=== PATIENT | male | born 1945 | race Caucasian/White ===

== ENCOUNTER 2017-06-11 10:38 | Observation (INO) | payer OTHER ==
[2017-05-30 10:01] VITALS: Ht 175.3 cm; Wt 98.6 kg
--- NOTE | 2017-05-30 10:33 | PAT Medication Instructions ---
Service Date May 30, 2017. Current Home Medication List Glipizide (Glipizide), 10 MG PO QAM Naproxen (Aleve), 40 MG PO PRN Prednisone Tab (Prednisone), 10 MG PO QAM Tamsulosin Hcl (Flomax), 0.4 MG PO BID [Apruvia], 1 TAB PO QAM Medication Instructions For Your Scheduled Surgery - Check with surgeon for instructions: Naproxen (Aleve), 40 MG PO PRN - Hold the following medications the morning of surgery: Glipizide (Glipizide), 10 MG PO QAM Tamsulosin Hcl (Flomax), 0.4 MG PO BID [Apruvia], 1 TAB PO QAM - Take the following medications the morning of surgery with a sip of water: Prednisone Tab (Prednisone), 10 MG PO QAM - Take the following medications as scheduled the night before surgery: Tamsulosin Hcl (Flomax), 0.4 MG PO BID If you have any questions please call us at [phone] or [phone] or [phone]
--- NOTE | 2017-05-30 10:58 | DIAGNOSTIC IMAGING REPORT ---
CHEST 2 VIEWS ROUTINE CLINICAL HISTORY: PAT preoperative evaluation COMPARISON STUDY: No previous studies for comparison. FINDINGS: The bones soft tissues and hemidiaphragms are normal. The cardiomediastinal silhouette is normal. The lungs are clear. The pulmonary vasculature is normal. IMPRESSION: Negative chest. The above report was generated using voice recognition software. It may contain grammatical, syntax or spelling errors. Electronically signed by: Micheal Maria M.D. 05/30/2017 10:56 AM Dictated Date/Time: 05/30/2017 10:56 AM
[2017-05-30 11:17] LABS: BASO % 0.3 %; BASO ABS # 0.04 K/uL (0-0.2); EOS % 1.6 %; IG# 0.13 K/uL (0.00-0.02); LYMPH % 18.5 %; LYMPH ABS # 2.31 K/uL (1.2-3.4); MEAN CELL VOLUME 92.4 fL (80-100); MEAN CORPUSCULAR HEMOGLOBIN 33.2 pg (25-34); MEAN CORPUSCULAR HGB CONC 35.9 g/dl (32-36); MEAN PLATELET VOLUME 11.1 fL (7.4-10.4); MONO % 8.8 %; NEUT % 69.8 %; NEUT ABS # 8.72 K/uL (1.4-6.5); PLATELET COUNT 184 K/uL (130-400); RED CELL DISTRIBUTION WIDTH CV 13.3 % (11.5-14.5); RED CELL DISTRIBUTION WIDTH SD 44.2 fL (36.4-46.3)
[2017-05-30 11:36] LABS: CALCIUM 8.6 mg/dl (8.5-10.1); CREATININE 0.98 mg/dl (0.60-1.40); POTASSIUM 3.4 mmol/L (3.5-5.1)
[2017-06-11] VITALS (9 sets, daily range): BP systolic 123–144; BP diastolic 73–82; PULSE 72–99; TEMP 36.3–38; O2SAT 96–98
[~2017-06-11] VITALS: Ht 175.3 cm; Wt 98.6 kg
[~2017-06-11 10:38] MED LIST: CIPROFLOXACIN / D5W 400 MG IV SCH; GLIP10TA10 PO; JANUVIA PO; LACTATED RINGER'S 1000ML 1,000 ML IV SCH; NAPR1TAB9 PO; PRED10TA PO; TAMS0.4C38 PO
[2017-06-11] MEDS ORDERED: METF-384 PO (11:05)
[2017-06-11] MEDS ORDERED: ASPI1TAB2 PO (11:07)
[2017-06-11] MEDS ORDERED: PROPOFOL IV EMULSION 10 MG/ML 20 ML VIAL IV ONE (11:59)
[2017-06-11] MEDS ORDERED: FENTANYL CITRATE INJ 50 MCG/1 ML 2 ML VIAL ONE (11:59)
[2017-06-11] MEDS ORDERED: MIDAZOLAM HCL 1 MG/ML 2ML VIAL ONE (11:59)
[2017-06-11] MEDS ORDERED: LIDOCAINE HCL 2% 2 ML VIAL (20MG/ML) ONE (11:59)
[2017-06-11] MEDS ORDERED: EpHEDrine SULFATE 50MG/5ML SYR ONE (12:02)
[2017-06-11] MEDS ORDERED: NALOXONE HCL 0.4 MG/1 ML VIAL/CARP IV PRN (12:30)
[2017-06-11] MEDS ORDERED: MEPERIDINE HCL 25 MG/ML CARP IV PRN (12:30)
[2017-06-11] MEDS ORDERED: PHENYLEPHRINE 100MCG/ML 5ML SYR IV PRN (12:30)
[2017-06-11] MEDS ORDERED: ONDANSETRON INJ 2 MG/ML 2 ML VIAL IV PRN (12:30)
[2017-06-11] MEDS ORDERED: ATROPINE SULFATE 0.1 MG/ML 5ML SYR IV PRN (12:30)
[2017-06-11] MEDS ORDERED: HYDROmorphone INJ 2 MG/ML SYR/VIAL IV PRN (12:30)
[2017-06-11] MEDS ORDERED: FLUMAZENIL 0.1 MG/1 ML 10 ML VIAL IV PRN (12:30)
[2017-06-11] MEDS ORDERED: LABETALOL HCL IV 5 MG/ML 20ML IV PRN (12:30)
[2017-06-11] MEDS ORDERED: FENTANYL CITRATE INJ 50 MCG/1 ML 2 ML VIAL IV PRN (12:30)
[2017-06-11] MEDS ORDERED: EpHEDrine SULFATE INJ 50 MG/ML AMP IV PRN (12:30)
--- NOTE | 2017-06-11 12:38 | History & Physical Bridge Note ---
H&P Re-Evaluation Bridge Note: I have examined the patient, reviewed the History & Physical and in the interval since the performance of the History & Physical I have noted the following changes of clinical significance: No changes noted
[2017-06-11] MEDS ORDERED: ONDANSETRON INJ 2 MG/ML 2 ML VIAL ONE ×2 (13:31→14:31)
--- NOTE | 2017-06-11 13:51 | [facility] Operative Report ---
Operative Report Operative Date Jun 11, 2017. Pre-Operative Diagnosis Benign Prostatic Hyperplasia Post-Operative Diagnosis Benign Prostatic Hyperplasia Procedure(s) Performed Transuretheral Resection Prostate Surgeon Dr. Vang Resource Management Planner Surgeon(s) none Estimated Blood Loss 5 cc Findings high bladder neck, lateral lobe hypertrophy Specimens none per surgeon Drains 20F Anesthesia Type General Complication(s) none Disposition yes Recovery Room / PACU (stable) Indications Urinary dysfunction; BPH Description of Procedure The patient was identified in the preoperative holding area, appropriate informed consents reviewed and completed and the patient was transported to the operating suite. Upon arrival he received appropriate preoperative antibiotics in the form of ciprofloxacin. Adequate general anesthesia was achieved, he was placed in dorsal lithotomy position where he was sterilely prepped and draped in standard fashion. I began the case by passing a 27 Romansh resectoscope with 30 lens and visual chilling hood operator. Inspection revealed no evidence of stricture disease. His prostate was noted to have lateral lobe hypertrophy with a high bladder neck making a moderately challenging to advance the scope into the bladder. Full inspection of the bladder was conducted, revealing no evidence of bladder tumors or other abnormalities. Ureteral orifices were identified and safely situated away from the bladder neck. I then exchanged the visual obturator for resecting element, I chose to use and a button electrode, and I began vaporization of the prostate. I began by making incisions at 5 and 7:00 in the bladder neck and then resecting the tissue in the space between my 2 incisions. This flattened the bladder neck nicely and relieved the vast majority of his obstruction. I did proceed to resect the lateral lobes, first from the left second from the right to completely open his prostatic fossa. I ensured meticulous hemostasis before concluding the case, then withdrew the scope in place a 22 Romansh Nickerson catheter without difficulty. He was subsequently extubated and taken to the PACU in stable condition. There were no complications. I attest to the content of the Intraoperative Record and any orders documented therein. Any exceptions are noted below.
[2017-06-11] MEDS ORDERED: NAPROXEN PO SCH (14:00)
[2017-06-11] MEDS ORDERED: ACETAMINOPHEN/CODEINE 300/30MG TAB PO PRN ×2 (14:00)
[2017-06-11] MEDS ORDERED: ACETAMINOPHEN 325 MG TAB PO PRN (14:00)
[2017-06-11] MEDS ORDERED: IV FLUIDS COMPLETED PRN (14:15)
--- NOTE | 2017-06-11 14:23 | Anesthesiology Progress Note ---
Anesthesia Post Op Note Date & Time Jun 11, 2017 at 14:23 Vital Signs Pain Intensity: 0 Vital Signs Past 12 Hours Date Time Temp Pulse Resp B/P (MAP) Pulse Ox O2 Delivery O2 Flow Rate FiO2 06/11/17 14:15 72 15 118/85 96 Oxymask 10 06/11/17 14:05 71 13 127/86 99 Oxymask 10 06/11/17 13:55 36.3 73 12 140/87 98 Oxymask 10 06/11/17 11:14 36.7 79 20 136/78 (97) 98 Room Air Notes Mental Status: alert / awake / arousable, participated in evaluation Pt Amnestic to Procedure: Yes Nausea / Vomiting: adequately controlled Pain: adequately controlled Airway Patency, RR, SpO2: stable & adequate BP & HR: stable & adequate Hydration State: stable & adequate Anesthetic Complications: no major complications apparent
[2017-06-11] MEDS ORDERED: DEXAMETHASONE SOD INJ 4 MG/ML VIAL ONE (14:31)
[2017-06-11] MEDS: LACTATED RINGER'S 1000ML 1,000 ML IV SCH (15:30)
[2017-06-11] MEDS ORDERED: SITA100T3 PO (17:14)
[2017-06-11] MEDS: METFORMIN HCL 500 MG TAB PO SCH (17:35)
[2017-06-12] MEDS: LACTATED RINGER'S 1000ML 1,000 ML IV SCH ×2 (00:21→08:00)
[2017-06-12 00:52] VITALS: TEMP 37.1
[2017-06-12 03:00] VITALS: BP 117/73; PULSE 86; TEMP 36.8; O2SAT 96
[2017-06-12 07:34] LABS: BASO % 0.7 %; BASO ABS # 0.06 K/uL (0-0.2); EOS % 2.4 %; EOS ABS # 0.21 K/uL (0-0.5); HEMATOCRIT 37.8 % (42-52); HEMOGLOBIN 13.4 g/dL (14.0-18.0); IG# 0.07 K/uL (0.00-0.02); LYMPH % 10.2 %; LYMPH ABS # 0.88 K/uL (1.2-3.4); MEAN CELL VOLUME 92.6 fL (80-100); MEAN CORPUSCULAR HEMOGLOBIN 32.8 pg (25-34); MEAN CORPUSCULAR HGB CONC 35.4 g/dl (32-36); MEAN PLATELET VOLUME 10.5 fL (7.4-10.4); MONO ABS # 1.03 K/uL (0.11-0.59); NEUT % 73.9 %; NEUT ABS # 6.34 K/uL (1.4-6.5); PLATELET COUNT 187 K/uL (130-400); RED CELL DISTRIBUTION WIDTH CV 13.6 % (11.5-14.5); RED CELL DISTRIBUTION WIDTH SD 46.2 fL (36.4-46.3); WHITE BLOOD COUNT 8.59 K/uL (4.8-10.8)
[2017-06-12 07:52] LABS: CREATININE 1.15 mg/dl (0.60-1.40); POTASSIUM 3.8 mmol/L (3.5-5.1)
[2017-06-12 07:54] VITALS: O2SAT 96
[2017-06-12 08:01] VITALS: BP 132/82; PULSE 79; TEMP 36.7; O2SAT 96
--- NOTE | 2017-06-12 08:30 | Anesthesiology Progress Note ---
Anesthesia Post Op Note Date & Time Jun 12, 2017 at 08:30 Vital Signs Pain Intensity: 0.0 Vital Signs Past 12 Hours Date Time Temp Pulse Resp B/P (MAP) Pulse Ox O2 Delivery O2 Flow Rate FiO2 06/12/17 08:01 36.7 79 17 132/82 (99) 96 Room Air 06/12/17 07:54 96 Room Air 06/12/17 03:00 36.8 86 18 117/73 (88) 96 Room Air 06/12/17 00:52 37.1 06/11/17 23:30 96 Room Air 06/11/17 22:59 38.0 99 18 135/82 (99) 96 Room Air Notes Mental Status: alert / awake / arousable, participated in evaluation Pt Amnestic to Procedure: Yes Nausea / Vomiting: adequately controlled Pain: adequately controlled Airway Patency, RR, SpO2: stable & adequate BP & HR: stable & adequate Hydration State: stable & adequate Anesthetic Complications: no major complications apparent
[2017-06-12] MEDS: METFORMIN HCL 500 MG TAB PO SCH (08:57)
[2017-06-12] MEDS ORDERED: SITAGLIPTIN 100 MG TAB PO SCH (09:00)
[2017-06-12] MEDS ORDERED: HYDR-5688 PO (09:23)
[2017-06-12] MEDS ORDERED: DOCU-94 PO (09:23)
--- NOTE | 2017-06-12 09:25 | Progress Note ---
Subjective Date of Service: Jun 12, 2017. Subjective Pt evaluation today including: conversation w/ patient, physical exam, lab review Voiding: fuentes catheter in place Subjectively reports he is feeling very well this morning No pain He did have a single fever overnight This was self-limited He reports he does experience this at home over the past several months Fuentes catheter cleared appropriately Review of Systems Constitutional: + fever Abdomen: No pain, No nausea Objective Vital Signs Date Time Temp Pulse Resp B/P (MAP) Pulse Ox O2 Delivery O2 Flow Rate FiO2 06/12/17 08:01 36.7 79 17 132/82 (99) 96 Room Air 06/12/17 07:54 96 Room Air 06/12/17 03:00 36.8 86 18 117/73 (88) 96 Room Air 06/12/17 00:52 37.1 06/11/17 23:30 96 Room Air 06/11/17 22:59 38.0 99 18 135/82 (99) 96 Room Air 06/11/17 20:11 37.2 85 18 144/81 (102) 98 Room Air 06/11/17 18:18 36.8 86 18 126/75 (92) 98 Room Air 06/11/17 17:11 36.4 78 16 123/74 (90) 96 Room Air 06/11/17 16:30 Room Air 06/11/17 16:17 36.7 78 18 124/77 (93) 97 Room Air 06/11/17 15:40 36.3 76 16 136/81 (99) 97 Room Air 06/11/17 15:10 97 Room Air 06/11/17 15:10 36.5 72 14 139/73 (95) 97 Room Air 06/11/17 15:10 97 Room Air 06/11/17 14:45 71 14 124/69 96 Room Air 06/11/17 14:35 37.0 71 14 119/71 96 Room Air 06/11/17 14:25 71 17 126/75 96 Room Air 06/11/17 14:15 72 15 118/85 96 Oxymask 10 06/11/17 14:05 71 13 127/86 99 Oxymask 10 06/11/17 13:55 36.3 73 12 140/87 98 Oxymask 10 06/11/17 11:14 36.7 79 20 136/78 (97) 98 Room Air Physical Exam General Appearance: no apparent distress Eyes: normal inspection ENT: hearing grossly normal Abdomen: non tender, soft Laboratory Results Last 24 Hours Test 06/11/17 11:50 06/11/17 14:28 06/11/17 17:07 06/11/17 20:35 Bedside Glucose 155 mg/dl 172 mg/dl 165 mg/dl 192 mg/dl Test 06/12/17 02:55 06/12/17 07:00 Bedside Glucose 93 mg/dl White Blood Count 8.59 K/uL Red Blood Count 4.08 M/uL Hemoglobin 13.4 g/dL Hematocrit 37.8 % Mean Corpuscular Volume 92.6 fL Mean Corpuscular Hemoglobin 32.8 pg Mean Corpuscular Hemoglobin Concent 35.4 g/dl Platelet Count 187 K/uL Mean Platelet Volume 10.5 fL Neutrophils (%) (Auto) 73.9 % Lymphocytes (%) (Auto) 10.2 % Monocytes (%) (Auto) 12.0 % Eosinophils (%) (Auto) 2.4 % Basophils (%) (Auto) 0.7 % Neutrophils # (Auto) 6.34 K/uL Lymphocytes # (Auto) 0.88 K/uL Monocytes # (Auto) 1.03 K/uL Eosinophils # (Auto) 0.21 K/uL Basophils # (Auto) 0.06 K/uL RDW Standard Deviation 46.2 fL RDW Coefficient of Variation 13.6 % Immature Granulocyte % (Auto) 0.8 % Immature Granulocyte # (Auto) 0.07 K/uL Sodium Level 136 mmol/L Potassium Level 3.8 mmol/L Chloride Level 105 mmol/L Carbon Dioxide Level 23 mmol/L Anion Gap 8.0 mmol/L Blood Urea Nitrogen 21 mg/dl Creatinine 1.15 mg/dl Est Creatinine Clear Calc Drug Dose 66.3 ml/min Estimated GFR () 72.8 Estimated GFR (Non- 62.8 BUN/Creatinine Ratio 18.4 Random Glucose 140 mg/dl Calcium Level 8.0 mg/dl Assessment and Plan Postoperative day #1 status post TURP Recovering appropriately Plan for voiding trial now Plan for discharge home assuming he does not have any fevers between now and lunch He was treated with Bactrim preoperatively secondary to his positive urine culture He will continue treatment after discharge for the next several days
--- NOTE | 2017-06-12 09:25 | Discharge Instructions ---
Discharge Instructions Date of Service Jun 12, 2017. Admission Reason for Admission: Benign Prostatic Hypertrophy Discharge Discharge Diagnosis / Problem: Benign prostatic hypertrophy Discharge Goals Goal(s): Decrease discomfort, Improve disease control, Therapeutic intervention Activity Recommendations Activity Limitations: as noted below Lifting Limitations: no more than 25 pounds (x 1 week ) Exercise/Sports Limitations: rest today, gradually increase as tolerated ( Light activity x 2 weeks. No heavy lifting, heavy exercise, or riding lawn mowers. ) May Resume Sexual Activity: after follow-up appointment Shower/Bathe: no limitations . Instructions / Follow-Up Instructions / Follow-Up 1. You may resume taking Aspirin when urine is clear. 2. Follow-up with Dr. Vang as scheduled. Please call our office at if you need to reschedule for any reason. 3. Finish all Bactrim DS as prescribed. 4. You may resume taking Aleve in 5 days. Current Hospital Diet Patient's current hospital diet: Diabetes Type 2 Diet Discharge Diet Recommended Diet: Diabetes Type 2 Diet Procedures Procedures Performed: Transuretheral Resection Prostate Pending Studies Studies pending at discharge: no Medical Emergencies . Who to Call and When: Medical Emergencies: If at any time you feel your situation is an emergency, please call 911 immediately. . Non-Emergent Contact Non-Emergency issues call your: Urologist Call Non-Emergent contact if: temperature is above 101.5, your pain is not controlled, your pain is worsening, your pain is unusual for you, your pain is concerning you, you have any medication questions . . "Provider Documentation" section prepared by Amina Galicia. . [place] Drug Monitoring Program Search Results: patient reviewed within database, no issues identified
[2017-06-12] MEDS ORDERED: NURSING VERBAL MED ORDER ONE (13:15)
[2017-06-12 14:16] VITALS: BP 132/82; PULSE 79; TEMP 36.7; O2SAT 96
== END 2017-06-12 16:00 | disposition home or self-care (01) ==
LOC: C.ACU 10:38 → ENRESERV 14:51 → C.MSN 15:23
PROVIDERS: ADMIT Urology; ATTEND Urology
DX: N40.1 Benign prostatic hyperplasia with lower urinary tract symptoms (principal); N39.41 Urge incontinence; Z91.013 Allergy to seafood; E78.00 Pure hypercholesterolemia, unspecified; E11.9 Type 2 diabetes mellitus without complications; Z98.890 Other specified postprocedural states; Z68.32 Body mass index [BMI] 32.0-32.9, adult; E66.9 Obesity, unspecified; Z79.899 Other long term (current) drug therapy; Z87.891 Personal history of nicotine dependence; Z83.3 Family history of diabetes mellitus; Z82.0 Family history of epilepsy and other diseases of the nervous system